=== PATIENT | male | born 1985 | race American Indian/Alaskan Native ===

== ENCOUNTER 2020-04-23 12:46 | Emergency (ER) | payer SELFPAY ==
[2020-04-23] MEDS ORDERED: ASPIRIN 325 MG TAB PO ONE (12:51)
--- NOTE | 2020-04-23 13:27 | XRay Report ---
CHEST 1 VIEW 1311 INDICATION / CLINICAL INFORMATION: Chest Pain COMPARISON: 09/03/2014 FINDINGS: SUPPORT DEVICES: None HEART / MEDIASTINUM: No significant abnormality. LUNGS / PLEURA: No significant pulmonary or pleural abnormality. No pneumothorax. ADDITIONAL FINDINGS: No significant additional findings. IMPRESSION: No significant acute abnormality Signer Name: Abhi Urrutia MD Signed: 04/23/2020 1:22 PM Workstation Name: [id number]
[2020-04-23 13:47] LABS: Basophils % (Auto) 1.3 % (0.0-1.8); Eosinophils # (Auto) 0.1 K/mm3 (0.0-0.4); Eosinophils % (Auto) 1.6 % (0.0-4.3); Hematocrit 44.7 % (35.5-45.6); Hemoglobin 14.2 gm/dl (11.8-15.2); Lymphocytes # (Auto) 1.3 K/mm3 (1.2-5.4); Lymphocytes % (Auto) 36.2 % (13.4-35.0); Mean Corpuscular HGB Conc 32 % (32-34); Mean Corpuscular Volume 78 fl (84-94); Monocytes # (Auto) 0.5 K/mm3 (0.0-0.8); Monocytes % (Auto) 13.5 % (0.0-7.3); Platelet Count 202 K/mm3 (140-440); Red Blood Count 5.74 M/mm3 (3.65-5.03)
[2020-04-23 14:07] LABS: BUN/Creatinine Ratio 13; Blood Urea Nitrogen 14 mg/dL (9-20); Hemolysis Index 10
--- NOTE | 2020-04-23 15:19 | Emergency Department Report ---
ED Chest Pain HPI - General Chief Complaint: Chest Pain Stated Complaint: CHEST PAIN Time Seen by Provider: 04/23/20 15:12 Source: patient Mode of arrival: Ambulatory Limitations: No Limitations - History of Present Illness Initial Comments: This is a 34-year-old male who is noncompliant with previous treatment for hypertension. He states he was on a diuretic. His blood pressure at the time of my encounter was 142/97. He states that he woke up this morning with chest pain which is sharp in a very small circumscribed area in his "rib". He reports no nausea vomiting sweating or acute cough. He states he smokes and does occasionally cough. MD Complaint: chest pain -: This morning Onset: during rest Pain Location: left chest Pain Radiation: none Severity: mild, moderate Quality: sharp Consistency: intermittent Improves With: nothing Worsens With: nothing Context: other (Refers no recent travel) re: denies: nausea, vomting, diaphoresis, dyspnea, sense of impending doom Other Symptoms: cough (Chronic and nonproductive). denies: fever, syncope Treatments Prior to Arrival: none - Related Data Previous Rx's Medication Instructions Recorded Last Taken Type Famotidine [Pepcid] 20 mg PO DAILY #30 tablet 08/29/14 09/02/14 Rx lisinopriL [Zestril TAB] 10 mg PO QDAY #30 tablet 08/29/14 09/02/14 Rx traMADoL [Ultram] 50 mg PO Q6HR PRN #7 tablet 04/23/20 Unknown Rx Allergies Allergy/AdvReac Type Severity Reaction Status Date / Time No Known Allergies Allergy Unverified 08/28/14 21:29 Heart Score - HEART Score History: Slightly suspicious EKG: Normal Age: < 45 Risk factors: 1-2 risk factors Troponin: < normal limit HEART Score: 1 - Critical Actions Critical Actions: 0-3 pts:0.9-1.7%risk of adverse cardiac event.Candidate for discharge ED Review of Systems ROS: Stated complaint: CHEST PAIN Other details as noted in HPI Constitutional: denies: chills, fever Eyes: denies: eye pain, eye discharge, vision change ENT: denies: ear pain, throat pain Respiratory: cough. denies: shortness of breath, SOB with exertion, wheezing Cardiovascular: chest pain. denies: palpitations Endocrine: no symptoms reported Gastrointestinal: denies: abdominal pain, nausea, diarrhea Genitourinary: denies: urgency, dysuria Musculoskeletal: denies: back pain, joint swelling, arthralgia Skin: denies: rash, lesions Neurological: denies: headache, weakness, paresthesias Psychiatric: denies: anxiety, depression Hematological/Lymphatic: denies: easy bleeding, easy bruising ED Past Medical Hx - Past Medical History Previous Medical History?: Yes Hx Hypertension: Yes Additional medical history: pt was told blood pressure high no follow up - Surgical History Past Surgical History?: Yes Additional Surgical History: rt hand surgery 1999 - Social History Smoking Status: Current Every Day Smoker Substance Use Type: Alcohol, Marijuana - Medications Home Medications: Home Medications Medication Instructions Recorded Confirmed Last Taken Type Famotidine [Pepcid] 20 mg PO DAILY #30 tablet 08/29/14 09/03/14 09/02/14 Rx lisinopriL [Zestril TAB] 10 mg PO QDAY #30 tablet 08/29/14 09/03/14 09/02/14 Rx traMADoL [Ultram] 50 mg PO Q6HR PRN #7 tablet 04/23/20 Unknown Rx ED Physical Exam - General Limitations: No Limitations General appearance: alert, in no apparent distress - Head Head exam: Present: atraumatic, normocephalic - Eye Eye exam: Present: normal appearance, PERRL, EOMI. Absent: scleral icterus - ENT ENT exam: Present: mucous membranes moist - Neck Neck exam: Present: normal inspection. Absent: meningismus - Respiratory Respiratory exam: Present: normal lung sounds bilaterally. Absent: respiratory distress - Cardiovascular Cardiovascular Exam: Present: regular rate, normal rhythm. Absent: systolic murmur, diastolic murmur, rubs, gallop - GI/Abdominal GI/Abdominal exam: Present: soft, normal bowel sounds. Absent: distended, tenderness, guarding, rebound - Rectal Rectal exam: Present: deferred - Extremities Exam Extremities exam: Present: normal inspection. Absent: pedal edema, joint swelling, calf tenderness - Back Exam Back exam: Present: normal inspection - Neurological Exam Neurological exam: Present: alert, oriented X3, CN II-XII intact. Absent: motor sensory deficit - Psychiatric Psychiatric exam: Present: normal affect, normal mood - Skin Skin exam: Present: warm, dry, intact, normal color. Absent: rash ED Course Vital Signs 04/23/20 04/23/20 04/23/20 12:48 14:36 14:44 Temperature 99 F Pulse Rate 92 H 71 Respiratory 20 Rate Blood Pressure 160/107 Blood Pressure 144/93 [Left] O2 Sat by Pulse 99 Oximetry - Reevaluation(s) Reevaluation #1: Patient's pulse oximetry is 100%. His heart rate is normal. He is in no distress whatsoever. His blood pressure is stage I hypertension. I do not think that he will likely be compliant if I prescribe him something for his blood pressure. I think this is best confirmed with a another reading at the [facility]. He is referred there. His pain is really quite atypical. However, it is not indicative of a cardiopulmonary process. 04/23/20 15:23 Reevaluation #2: Of interest is the fact that the patient tells me he is never gone to the hospital with a complaint of chest pain before. In 2013 he was admitted here and had a negative cardiac work-up: Hospitalization Condition: Good Pertinent studies: Echocardiogram that was normal stress thallium normal. Hospital course: Patient Hospital course unremarkable. Patient was admitted worked up for cardiac etiology of his chest pain in all was negative. Patient also noticed that had excessive amount of gas all throughout the night in the day prior to patient stated as gas all the night symptoms much relieved. Disposition: DISCHARGED TO HOME OR SELFCARE - Discharge Diagnoses (1) Chest pain Status: Acute Comment: Cardiac workup negative stress test negative echo unremarkable. Patient improved after passing flatulence. This is most likely etiology. Patient will follow-up with primary care physician Dr. constantino wilson 57 days. (2) Hypertension complications Status: Chronic 04/23/20 15:25 MALAIKA score - Malaika Score Age > 65: (0) No Aspirin use within the Past 7 Days: (0) No 3 or more CAD Risk Factors: (1) Yes 2 or more Angina events in past 24 hrs: (0) No Known CAD with more than 50% Stenosis: (0) No Elevated Cardiac Markers: (0) No ST Deviation Greater than 0.5mm: (0) No MALAIKA Score: 1 ED Medical Decision Making - Lab Data Result diagrams: 04/23/20 13:31 04/23/20 13:31 Laboratory Results - last 24 hr 04/23/20 04/23/20 04/23/20 13:31 13:31 14:22 WBC 3.7 L RBC 5.74 H Hgb 14.2 Hct 44.7 MCV 78 L MCH 25 L MCHC 32 RDW 15.0 Plt Count 202 Lymph % (Auto) 36.2 H [place] % (Auto) 13.5 H Eos % (Auto) 1.6 Baso % (Auto) 1.3 Lymph # 1.3 [place] # 0.5 Eos # 0.1 Baso # 0.0 Seg Neutrophils % 47.4 Seg Neutrophils # 1.7 L Sodium 142 Potassium 4.4 Chloride 104.3 Carbon Dioxide 24 Anion Gap 18 BUN 14 Creatinine 1.1 Estimated GFR > 60 BUN/Creatinine Ratio 13 Glucose 93 Calcium 9.0 Troponin T < 0.010 < 0.010 - EKG Data -: EKG Interpreted by Me EKG shows normal: sinus rhythm, axis, intervals, QRS complexes, ST-T waves Rate: normal - EKG Data Interpretation: normal EKG - Radiology Data Radiology results: report reviewed Critical care attestation.: If time is entered above; I have spent that time in minutes in the direct care of this critically ill patient, excluding procedure time. ED Disposition Clinical Impression: Atypical chest pain Disposition: DC-01 TO HOME OR SELFCARE Is pt being admited?: No Does the pt Need Aspirin: No Condition: Stable Instructions: Chest Pain (ED), Hypertension (ED) Additional Instructions: He has been previously diagnosed here as having hypertension. I do think that he will need to be on medicine. I would recommend that you recheck your blood pressure at the [facility]. See referral. Return to the emergency department any acute change or problem. Prescriptions: traMADoL [Ultram] 50 mg PO Q6HR PRN #7 tablet PRN Reason: Pain Referrals: PRIMARY MD MATIAS [Primary Care Provider] - 3-5 Days [facility] [Provider Group] - 2-3 Days Time of Disposition: 15:27
[2020-04-23 15:33] VITALS: BP 139/95
== END 2020-04-23 15:54 | disposition home or self-care (01) ==
LOC: ED 12:46
DX: R07.89 Other chest pain (principal); R05 Cough; F17.200 Nicotine dependence, unspecified, uncomplicated; F12.10 Cannabis abuse, uncomplicated; I10 Essential (primary) hypertension; Z79.899 Other long term (current) drug therapy
CPT/HCPCS: 36415; 71045; 80048; 84484; 85025; 93005